=== PATIENT | male | born 2005 | race Caucasian/White ===

== ENCOUNTER 2025-06-15 15:23 | Emergency (ER) | payer OTHER, SELFPAY ==
--- NOTE | 2025-06-15 15:30 | ED.SKABFB ---
HPI - Skin/Abscess/Foreign Bdy General Chief complaint: Skin/Abscess/Foreign Body Stated complaint: Rash Time Seen by Provider: 06/15/25 15:28 Source: patient Mode of arrival: ambulatory Limitations: no limitations History of Present Illness HPI narrative: Lex is a 20 year old male patient presenting to the clinic today with c/o rash to his bilateral lower legs and right upper arm x1 month. He reports no environmental changes. Denies any new soaps, shampoos, lotions, or detergents. States he has been working out at the gym and is on the mats. States the rash is mildly itchy. Has not done any treatment at home. Related Data Allergies Allergy/AdvReac Type Severity Reaction Status Date / Time No Known Drug Allergies Allergy none Verified 06/15/25 15:38 Review of Systems Review of Systems: Pertinent positives per HPI. Patient denies any fever, chills, rash, headache, visual changes, dizziness, cough, runny nose, sore throat, shortness of breath, chest pain, palpitations, nausea, vomiting, diarrhea, constipation, abdominal pain, or any urinary issues. PMFSH Comments At the time of my signature, I reviewed and agree with the nursing past medical, surgical, social, and family history. There is no relevant family history pertinent to the patient complaint. Exam Narrative: General: Well-developed, well nourished, in no apparent distress Head: Normocephalic, atraumatic. Cardio: Regular rate and rhythm, s1 and s2 normal, no murmur appreciated. Resp: Clear to auscultation bilaterally, no rhonchi, rales, wheezing or rubs. Integumentary: [place], warm, and dry, brownish red raised scaly itchy rash to bilateral legs and right upper arm. Rash is circular and has central clearing. Course Course Emergency Course: Portions of this record may have been created with voice recognition software. Level of Care: Express Care Visit Vital Signs Vital signs: Vital Signs Temperature 36.7 C 06/15/25 15:34 Pulse Rate 85 06/15/25 15:34 Respiratory Rate 16 06/15/25 15:34 Blood Pressure 140/83 06/15/25 15:34 Pulse Oximetry 97 06/15/25 15:34 Oxygen Delivery Room Air 06/15/25 15:34 Temperature 36.7 C 06/15/25 15:34 Pulse Rate 85 06/15/25 15:34 Respiratory Rate 16 06/15/25 15:34 Blood Pressure 140/83 06/15/25 15:34 Pulse Oximetry 97 06/15/25 15:34 Oxygen Delivery Room Air 06/15/25 15:34 Vital signs reviewed MDM - Skin/Abscess/Foreign Bdy MDM Narrative Medical decision making narrative: At the time of visit patient is resting comfortably on the exam table. Patient appears to be nontoxic. C/o rash to his bilateral lower legs and right upper arm x1 month. He reports no environmental changes. Denies any new soaps, shampoos, lotions, or detergents. States he has been working out at the gym and is on the mats. States the rash is mildly itchy. Has not done any treatment at home. brownish red raised scaly itchy rash to bilateral legs and right upper arm. Rash is circular and has central clearing. Plan: I suspect patient has tinea corpus rash. Prescription for Diflucan and clotrimazole cream was sent to the pharmacy. Supportive measures were discussed with the patient and they voiced understanding discharge instructions and agrees to treatment plan. Return precautions reviewed Differential Diagnosis Differential diagnosis: Likely abscess of skin or subcutaneous tissue, viral exanthem, dermatophytosis, urticaria, herpes zoster, allergic reaction to drug, cellulitis, eczema, insect bites, impetigo and contact dermatitis Discharge Plan Discharge Clinical Impression: Tinea corporis Patient Disposition: Home Condition: Stable Instructions: Antibiotic Form, Tinea Corporis (ED) Additional Instructions: I suspect you have tinea corpus Apply clotrimazole cream to the area twice daily x4 weeks. Take Diflucan as prescribed x4 weeks May stop treatment if symptoms resolve times 48 hours Follow-up with your PCP in 1-2 weeks if symptoms persist Patient Language: Thai Prescriptions: New fluconazole 150 mg tablet 150 mg PO WEEKLY 28 Days Qty: 4 0RF clotrimazole 1 % cream 1 applic topical BID 28 Days Qty: 45 0RF Follow-up/Referrals: PHYSICIAN,PROGRAM SUPPORT SPECIALIST [Primary Care Provider, Internal Medicine] Time of Disposition: 15:41 Quality NIHSS Nursing Documentation ED NIHSS nursing documentation: reviewed/agree
[2025-06-15 15:34] VITALS: BP 140/83; PULSE 85; RESP 16; TEMP 36.7; O2SAT 97
== END 2025-06-15 15:48 | disposition home or self-care (01) ==
PROVIDERS: Emergency Provider Nurse Practitioner Family
DX: B35.4 Tinea corporis (principal)
CPT/HCPCS: 99203; G0463